=== PATIENT | male | born 1985 | race American Indian/Alaskan Native ===

== ENCOUNTER 2016-12-08 13:23 | Emergency (ER) | payer SELFPAY ==
[2016-12-08 13:42] VITALS: BP 115/73
== END 2016-12-08 13:45 | disposition left against medical advice (07) ==
LOC: ED 13:23
DX: R51 Headache (principal); Z53.21 Procedure and treatment not carried out due to patient leaving prior to being seen by health care provider

== ENCOUNTER 2017-12-06 12:27 | Emergency (ER) | payer SELFPAY ==
[2017-12-06 12:32] VITALS: BP 123/76
== END 2017-12-06 12:45 | disposition left against medical advice (07) ==
LOC: ED 12:27
DX: K08.89 Other specified disorders of teeth and supporting structures (principal); R22.0 Localized swelling, mass and lump, head; Z53.21 Procedure and treatment not carried out due to patient leaving prior to being seen by health care provider